=== PATIENT | female | born 1960 | race Caucasian/White ===

== ENCOUNTER 2018-01-06 17:40 | Emergency (ER) | payer BC ==
--- NOTE | 2018-01-06 18:57 | UC ---
Complaint Female HPI - HPI Summary HPI Summary: Per hospital internship "lower abdominal pressure with cramps for past 2 days, today not feeling well, states unable to empty bladder." She has had many UTIs and is confident that this is a UTI. she was hoping it would resolve w/ water and cranberry juice over last 2 days but progressively worse. difficult to urinate now. no f/c/body aches/ no n/v. no hematuria. pain over bladder only. no RLQ or LLQ pain - History Of Current Complaint Chief Complaint: [facility] Stated Complaint: URINARY Time Seen by Provider: 01/06/18 18:23 Pain Intensity: 7 - Allergies/Home Medications Allergies/Adverse Reactions: Allergies Allergy/AdvReac Type Severity Reaction Status Date / Time Penicillins Allergy Rash Verified 01/06/18 18:15 PMH/Surg Hx/FS Hx/Imm Hx Previously Healthy: Yes - Surgical History Surgical History: Yes Surgery Procedure, Year, and Place: thyroidectomy. Back surgery 2001. T & A - Family History Known Family History: Positive: Hypertension - Social History Alcohol Use: None Substance Use Type: None Smoking Status (MU): Former Smoker Review of Systems Constitutional: Negative Skin: Negative Eyes: Negative ENT: Negative Respiratory: Negative Cardiovascular: Negative Gastrointestinal: Negative Genitourinary: Dysuria, Urgency Motor: Negative Neurovascular: Negative Musculoskeletal: Negative Neurological: Negative Psychological: Negative Is Patient Immunocompromised?: No All Other Systems Reviewed And Are Negative: Yes Physical Exam Triage Information Reviewed: Yes Appearance: Ill-Appearing - mild. Vital Signs: Initial Vital Signs Temp 99.1 F 01/06/18 18:10 Pulse 90 01/06/18 18:10 Resp 16 01/06/18 18:10 BP 137/84 01/06/18 18:10 Pulse Ox 100 01/06/18 18:10 Vital Signs Reviewed: Yes Eye Exam: Normal ENT: Positive: Pharynx normal Neck exam: Normal Neck: Positive: Supple, Nontender, No Lymphadenopathy Respiratory Exam: Normal Respiratory: Positive: Lungs clear, Normal breath sounds, No respiratory distress. Negative: Crackles, Rhonchi, Stridor, Wheezing Cardiovascular Exam: Normal Cardiovascular: Positive: RRR, No Murmur, Pulses Normal Abdomen Description: Positive: No Organomegaly, Soft, Other: - localized suprapubic tnederness. Negative: CVA Tenderness (R), CVA Tenderness (L), Distended, Guarding, Peritoneal Signs Bowel Sounds: Positive: Present Neurological Exam: Normal Psychological Exam: Normal Skin Exam: Normal Complaint Female Dx - Course Course Of Treatment: UA w/ + 2 blood. + LE. neg nitrites. clincially c/w UTI as she has had in past. reiable historian. treat w/ macrobid x 5 d and OTC pyridium (disc orange color of urine). adv to go to ER w/ any above sx or not signfiicant relief in next 24 hrs. she understood me well and is agreeable w/ plan. - Differential Dx/Diagnosis Differential Diagnosis/HQI/PQRI: Renal Colic, Urinary Tract Infection Provider Diagnoses: UTI Discharge - Sign-Out/Discharge Documenting (check all that apply): Discharge/Admit/Transfer - Discharge Plan Condition: Stable Disposition: HOME Prescriptions: Nitrofurantoin Monohyd/M-Cryst [Macrobid 100 mg Capsule] 100 mg PO BID 5 Days # 10 cap Patient Education Materials: Phenazopyridine (By mouth), Urinary Tract Infection in Women (ED) Referrals: Dasha Pan MD [Primary Care Provider] - 5 Days Additional Instructions: You should continue to push fluids and cranberry juice. If your symptoms worsen , & develope fevers, chills or body aches, nausea or vomiting you should go to the emergency room. Your symptoms should improve dramatically within the first 24 hours of taking antibiotics. You can take a medicine called Pyridium for which I printed out some information. You can find this [id number] and this will help relieve your symptoms but not cure the infection. - Billing Disposition and Condition Condition: STABLE Disposition: Home
== END 2018-01-06 19:10 | disposition home or self-care (01) ==
LOC: UCCORT 17:40
DX: B96.20 Unspecified Escherichia coli [E. coli] as the cause of diseases classified elsewhere (principal); Z88.0 Allergy status to penicillin; Z87.891 Personal history of nicotine dependence
CPT/HCPCS: 81003; 87077; 87086; 87186; 99202; G0463